=== PATIENT | female | born 1970 | race Caucasian/White ===

== ENCOUNTER → 2021-07-02 | Outpatient (REF) | payer OTHER ==
[2021-07-02 18:09] LABS: CREATININE, URINE 14.7 MG/DL; MALB URINE SIEMENS 43.2 MG/L; MAU/CREAT RATIO 293.8 MCG/MG (0.0-30.0)
== END ==
LOC: M LAB REF 17:02
PROVIDERS: ATTEND Nurse Practitioner Family
DX: E11.65 Type 2 diabetes mellitus with hyperglycemia (principal)